=== PATIENT | male | born 1960 | race Caucasian/White ===

== ENCOUNTER 2018-10-26 12:00 | Inpatient (IN) | payer BC ==
[2018-10-26] MEDS ORDERED: ASPIRIN 81 MG PO STA (12:31)
--- NOTE | 2018-10-26 12:34 | ED ---
General Adult HPI - General Chief complaint: Neuro Symptoms/Deficit Stated complaint: numbness, lip and rt arm/fingers Time Seen by Provider: 10/26/18 12:10 Source: patient Mode of arrival: ambulatory Limitations: no limitations - History of Present Illness Initial comments: Dictation was produced using [employer] dictation software. please excuse any grammatical, word or spelling errors. Chief Complaint: 58-year-old male with no reported past medical history presents with right facial numbness and right hand numbness for 3 days. History of Present Illness: Patient is a 58-year-old male who presents today with right facial and right hand numbness that has been ongoing for approximately 3 days. Patient states the symptoms have been progressively worse in over the last 72 hours. Patient has a history of stroke. He noticed today that his symptoms getting worse decided come to the emergency department. He explains that his symptoms are localized to his right perioral area and right palmar fingers. Denies any other neuro deficits. Denies any weakness. The ROS documented in this emergency department record has been reviewed and confirmed by me. Those systems with pertinent positive or negative responses dey ve been documented in the HPI. All other systems are other negative and/or noncontributory. PHYSICAL EXAM: General Impression: Alert and oriented x3, not in acute distress HEENT: Normocephalic atraumatic, extra-ocular movements intact, pupils equal and reactive to light bilaterally, mucous membranes moist. Cardiovascular: Heart regular rate and rhythm, S1&S2 audible, no murmurs, rubs or gallops Chest: Lungs clear to auscultation bilaterally, no rhonchi, no wheeze, no rales Abdomen: Bowel sounds present, abdomen soft, non-tender, non-distended, no organomegaly Musculoskeletal: Pulses present and equal in all extremities, no peripheral edema Motor: no focal deficits noted Neurological: CN II-XII grossly intact, no focal motor deficits noted. Decreased sensation to light touch to the hand and right perioral area Skin: Intact with no visualized rashes Psych: Normal affect and mood ED course: 58-year-old male with clinical presentation concerning for cerebrovascular accident. As upon arrival are within acceptable limits. Laboratory evaluation obtained. CBC, coag panel, metabolic panel is unremarkable. Cardiac enzymes negative. Brain CT shows no acute processes. Chest x-ray is nonacute. Patient reevaluated with stable symptoms. We will have patient admitted for cerebral vascular accident. Patient given aspirin. Neurology to be consulted. EKG interpretation: Ventricular rate 92, normal sinus rhythm, PA interval 142, QS 142, QTC 494. No PA prolongation, no QTC prolongation, no ST or T-wave changes noted. Overall, this EKG is unremarkable - Related Data Home Medications Medication Instructions Recorded Confirmed Aspirin EC [Ecotrin Low Dose] 81 mg PO DAILY 10/26/18 10/26/18 Multivitamins, Thera [Multivitamin 1 tab PO DAILY 10/26/18 10/26/18 (formulary)] [place]-3 Fatty Acids/Fish Oil [Fish 1 cap PO DAILY 10/26/18 10/26/18 Oil 1,000 mg Softgel] Allergies Allergy/AdvReac Type Severity Reaction Status Date / Time atorvastatin [From Lipitor] Allergy Itching Verified 10/26/18 12:37 diclofenac [From Cataflam] Allergy Itching Verified 10/26/18 12:37 Sulfa (Sulfonamide Allergy Unknown Verified 10/26/18 12:37 Antibiotics) Review of Systems ROS Statement: Those systems with pertinent positive or pertinent negative responses have been documented in the HPI. ROS Other: All systems not noted in ROS Statement are negative. Past Medical History Past Medical History: No Reported History History of Any Multi-Drug Resistant Organisms: None Reported Past Surgical History: Hernia Repair, Orthopedic Surgery Additional Past Surgical History / Comment(s): (L) (R) rotator cuff surgery Past Psychological History: No Psychological Hx Reported Smoking Status: Former smoker Past Alcohol Use History: Daily Past Drug Use History: None Reported General Exam Limitations: no limitations Course Vital Signs 10/26/18 10/26/18 12:03 13:25 Temperature 98.9 F Pulse Rate 88 85 Respiratory 16 18 Rate Blood Pressure 199/115 195/139 O2 Sat by Pulse 97 96 Oximetry Medical Decision Making - Lab Data Result diagrams: 10/26/18 12:40 10/26/18 12:40 Lab Results 10/26/18 10/26/18 10/26/18 Range/Units 12:31 12:40 12:40 WBC 7.5 (3.8-10.6) k/uL RBC 4.90 (4.30-5.90) m/uL Hgb 15.0 (13.0-17.5) gm/dL Hct 44.3 (39.0-53.0) % MCV 90.4 (80.0-100.0) fL MCH 30.5 (25.0-35.0) pg MCHC 33.8 (31.0-37.0) g/dL RDW 13.2 (11.5-15.5) % Plt Count 231 (150-450) k/uL Neutrophils % 66 % Lymphocytes % 26 % Monocytes % 5 % Eosinophils % 1 % Basophils % 0 % Neutrophils # 5.0 (1.3-7.7) k/uL Lymphocytes # 2.0 (1.0-4.8) k/uL Monocytes # 0.4 (0-1.0) k/uL Eosinophils # 0.1 (0-0.7) k/uL Basophils # 0.0 (0-0.2) k/uL PT (9.0-12.0) sec INR (<1.2) APTT (22.0-30.0) sec Sodium 141 (137-145) mmol/L Potassium 4.8 (3.5-5.1) mmol/L Chloride 111 H (98-107) mmol/L Carbon Dioxide 23 (22-30) mmol/L Anion Gap 7 mmol/L BUN 15 (9-20) mg/dL Creatinine 0.89 (0.66-1.25) mg/dL Est GFR (CKD-EPI)AfAm >90 (>60 ml/min/1.73 sqM) Est GFR (CKD-EPI)NonAf >90 (>60 ml/min/1.73 sqM) Glucose 101 H (74-99) mg/dL POC Glucose (mg/dL) 85 (75-99) mg/dL POC Glu Track Fitter ID Wade Ha Calcium 9.7 (8.4-10.2) mg/dL Total Bilirubin 0.4 (0.2-1.3) mg/dL AST 46 (17-59) U/L ALT 70 (21-72) U/L Alkaline Phosphatase 80 (38-126) U/L Troponin I (0.000-0.034) ng/mL Total Protein 7.3 (6.3-8.2) g/dL Albumin 4.4 (3.5-5.0) g/dL 10/26/18 10/26/18 Range/Units 12:40 12:40 WBC (3.8-10.6) k/uL RBC (4.30-5.90) m/uL Hgb (13.0-17.5) gm/dL Hct (39.0-53.0) % MCV (80.0-100.0) fL MCH (25.0-35.0) pg MCHC (31.0-37.0) g/dL RDW (11.5-15.5) % Plt Count (150-450) k/uL Neutrophils % % Lymphocytes % % Monocytes % % Eosinophils % % Basophils % % Neutrophils # (1.3-7.7) k/uL Lymphocytes # (1.0-4.8) k/uL Monocytes # (0-1.0) k/uL Eosinophils # (0-0.7) k/uL Basophils # (0-0.2) k/uL PT 10.1 (9.0-12.0) sec INR 0.9 (<1.2) APTT 23.7 (22.0-30.0) sec Sodium (137-145) mmol/L Potassium (3.5-5.1) mmol/L Chloride (98-107) mmol/L Carbon Dioxide (22-30) mmol/L Anion Gap mmol/L BUN (9-20) mg/dL Creatinine (0.66-1.25) mg/dL Est GFR (CKD-EPI)AfAm (>60 ml/min/1.73 sqM) Est GFR (CKD-EPI)NonAf (>60 ml/min/1.73 sqM) Glucose (74-99) mg/dL POC Glucose (mg/dL) (75-99) mg/dL POC Glu Track Fitter ID Calcium (8.4-10.2) mg/dL Total Bilirubin (0.2-1.3) mg/dL AST (17-59) U/L ALT (21-72) U/L Alkaline Phosphatase (38-126) U/L Troponin I 0.029 (0.000-0.034) ng/mL Total Protein (6.3-8.2) g/dL Albumin (3.5-5.0) g/dL Disposition Clinical Impression: Cerebrovascular accident Disposition: ADMITTED IP TO THIS HOSP Condition: Fair Referrals: Renetta Pantoja MD [Primary Care Provider] - 1-2 days Decision Time: 13:48
[2018-10-26 12:35] LABS: Glucose,Whole Blood 85 mg/dL (75-99)
[2018-10-26 12:49] LABS: HCT 44.3 % (39.0-53.0); MCH 30.5 pg (25.0-35.0); MCHC 33.8 g/dL (31.0-37.0); MCV 90.4 fL (80.0-100.0); WBC 7.5 k/uL (3.8-10.6)
[2018-10-26 12:50] LABS: Basophils % (A) 0 %; Eosinophils # (A) 0.1 k/uL (0-0.7); Eosinophils % (A) 1 %; Lymphocytes % (A) 26 %; Mean Platelet Volume 7.4; Monocytes # (A) 0.4 k/uL (0-1.0); Monocytes % (A) 5 %; Neutrophils % (A) 66 %; Platelet Count 231 k/uL (150-450); RDW 13.2 % (11.5-15.5)
[2018-10-26 12:56] LABS: ALT 70 U/L (21-72); AST 46 U/L (17-59); African American GFR (CKD) >90 (>60 ml/min/1.73 sqM); Albumin 4.4 g/dL (3.5-5.0); Alkaline Phosphatase 80 U/L (38-126); Anion Gap 7 mmol/L; Blood Urea Nitrogen 15 mg/dL (9-20); Calcium 9.7 mg/dL (8.4-10.2); Carbon Dioxide 23 mmol/L (22-30); Chloride 111 mmol/L (98-107); Glucose 101 mg/dL (74-99); INR 0.9 (<1.2); Partial Thromboplastin Time 23.7 sec (22.0-30.0); Potassium 4.8 mmol/L (3.5-5.1); Prothrombin Time 10.1 sec (9.0-12.0); Sodium 141 mmol/L (137-145); Total Bilirubin 0.4 mg/dL (0.2-1.3); Total Protein 7.3 g/dL (6.3-8.2)
--- NOTE | 2018-10-26 13:05 | CT ---
EXAMINATION TYPE: CT brain wo con DATE OF EXAM: 10/26/2018 COMPARISON: NONE HISTORY: Right facial and arm weakness CT DLP: 1062.4 mGycm Automated exposure control for dose reduction was used. FINDINGS: There are mild, generalized changes of sulcal prominence and ventriculomegaly compatible with mild at rophy. There is diffuse periventricular white matter lucency, compatible with chronic white matter ischemic change. There is no acute focal lesion, mass effect or midline shift. I do not see evidence of intrac ranial blood. There is mucosal thickening involving both maxillary sinuses. The mastoids are clear. T he bony calvarium is intact. IMPRESSION: 1. NO ACUTE INTRACRANIAL ABNORMALITY. 2. MILD DEGENERATIVE CHANGE. 3. MILD MAXILLARY SINUS DISEASE.
--- NOTE | 2018-10-26 13:05 | XR ---
EXAMINATION TYPE: XR chest 2V DATE OF EXAM: 10/26/2018 HISTORY: altered mental status. REFERENCE: NONE. FINDINGS: Lung volumes are prominent. The lungs are clear. Pleural space are clear. The heart is not enlarged. IMPRESSION: CORRELATE FOR COPD.
[2018-10-26 16:15] VITALS: BMI 32.8
[2018-10-26] MEDS: amLODIPine 10 MG TAB PO SCH (17:37)
[2018-10-26] MEDS: FAMOTIDINE 20 MG TAB PO SCH (17:38)
[2018-10-26] MEDS: HEPARIN SODIUM,PORCINE 5,000 UNIT/ML 1 ML VIAL SQ SCH (17:38)
[2018-10-26] MEDS: DOCUSATE 100 MG CAP PO SCH (17:39)
--- NOTE | 2018-10-26 20:06 | P.CNNES ---
History of Present Illness Consult date: 10/26/18 Reason for Consult: Stroke TIA History of Present Illness: Patient is a 58-year-old male, who has history of hypertension, X tobacco use, states that about 3 days ago he started noticing numbness of the upper and lower lip, only on the right side. Sometimes he would have numbness on the right side of his teeth, almost as if he has novocaine shot. Sometime it would extend to the right cheek region. Around the same time he also noticed numbness of the right hand. Patient states that he does have history of possible carpal tunnel syndrome, but symptoms in the right hand would come and go. This time it would not go away. Therefore he got concerned and decided to come to the ER. His symptoms have been present for 3 days therefore he was not a candidate for TPA. Patient underwent computed tomography scan of the head, which revealed no acute process. Some small vessel disease was seen. Patient denies any slurred speech, facial droop, headache, head trauma or any symptoms of weakness of the extremities. Patient blood pressure was 199/1:15, pulse rate 88 temperature 98.9. His blood pressure at this time is also elevated to 112/122. Patient's blood test shows normal CBC, PT/PTT, Chem-7, liver panel and troponin. EKG showed normal sinus rhythm, possible left atrial enlargement. Chest x-ray showed evidence of COPD. Patient has hypertension, denies diabetes. He does not know about his cholesterol status. Patient has smoked 1 pack per day for 38 years, quit in 2014. Patient states that he does drink about a 6 pack of beer a day. He has been doing it for quite some time. Patient does take low-dose aspirin every day. Review of Systems As per HPI. Patient denies any shortness of breath, cough, although he does have COPD. Denies any chest pain, abdominal pain, nausea vomiting diarrhea. Denies any neck pain and back pain, any recent injury or trauma. Past Medical History Past Medical History: No Reported History History of Any Multi-Drug Resistant Organisms: None Reported Past Surgical History: Hernia Repair, Orthopedic Surgery Additional Past Surgical History / Comment(s): (L) (R) rotator cuff surgery Past Psychological History: No Psychological Hx Reported Smoking Status: Former smoker Past Alcohol Use History: Daily Past Drug Use History: None Reported Medications and Allergies Home Medications Medication Instructions Recorded Confirmed Type Aspirin EC [Ecotrin Low Dose] 81 mg PO DAILY 10/26/18 10/26/18 History Multivitamins, Thera [Multivitamin 1 tab PO DAILY 10/26/18 10/26/18 History (formulary)] [place]-3 Fatty Acids/Fish Oil [Fish 1 cap PO DAILY 10/26/18 10/26/18 History Oil 1,000 mg Softgel] Allergies Allergy/AdvReac Type Severity Reaction Status Date / Time atorvastatin [From Lipitor] Allergy Itching Verified 10/26/18 12:37 diclofenac [From Cataflam] Allergy Itching Verified 10/26/18 12:37 Sulfa (Sulfonamide Allergy Unknown Verified 10/26/18 12:37 Antibiotics) Physical Examination - Vital Signs Vital Signs: Vital Signs Temp Pulse Pulse Resp BP BP Pulse Ox 10/26/18 18:26 212/122 10/26/18 16:35 88 17 221/133 97 10/26/18 14:52 80 20 185/124 97 10/26/18 14:18 82 18 179/122 96 10/26/18 13:25 85 18 195/139 96 10/26/18 12:03 98.9 F 88 16 199/115 97 Intake and Output 10/26/18 10/26/18 10/26/18 06:59 14:59 22:59 Intake Total 240 Balance 240 Intake: Oral 240 Other: Weight 106.594 kg 109.1 kg On examination patient is a middle aged male, very pleasant in no acute distress. He is alert and awake fully oriented to time place and person. Speech and language functions are normal. Patient may have very mild dysart hria. No aphasia. Attention and concentration fund of knowledge is adequate. There is no obvious bruit, and S1 and S2 audible. On cranial nerve examination pupils are round and reactive to light, visual ryan are full, extraocular muscles are intact. Face is symmetric and tongue protrudes to the midline. Palatal elevation and sensation normal. On muscle strength testing there is no drift and the strength is normal in arms and legs distally and proximally. There is no ataxia for [id number] testing. Tone and bulk of muscles normal. Reflexes are slightly hypoactive, but symmetric and plantars downgoing. Sensory to touch and temperature is equal bilaterally in the face arm and leg region Results - Laboratory Findings CBC and BMP: 10/26/18 12:40 10/26/18 12:40 Abnormal Lab Findings: Abnormal Labs 10/26/18 12:40 Chloride 111 H Glucose 101 H Assessment and Plan Assessment: * Probable acute CVA, manifesting with numbness of the right perioral region, and the right hand. Possible thalamic lacunar infarct. Peripheral process less likely. * Uncontrolled blood pressure * Eatd-dl-ocbzuwan alcoholism * Obesity Plan: * Agree with starting aspirin 325 mg daily. (Patient was on aspirin 81 mg at home.) * We will check MRI of the brain and MRA of the head. * Carotid Doppler to rule out carotid stenosis. * 2-D echo with bubble study to rule out PFO. * We will check fasting a.m. lipid panel, hemoglobin A1c. * Very cautiously control blood pressure if > 220/120, however would not treat if it is < 180 systolic. * Abstinence from alcohol. * We will follow.
[2018-10-26] MEDS ORDERED: LABETALOL 200 MG TAB PO STA (20:33)
--- NOTE | 2018-10-26 21:12 | US ---
EXAMINATION TYPE: US carotid duplex BILAT DATE OF EXAM: 10/26/2018 COMPARISON: None CLINICAL HISTORY: 58-year-old male CVA. Patient stated has intermittent right arm and facial numbness x 3 days TECHNIQUE: Carotid duplex ultrasound examination. Indirect Doppler criteria is utilized. FINDINGS: EXAM MEASUREMENTS: RIGHT: Peak Systolic Velocity (PSV) cm/sec ----- Right CCA: 40.9 ----- Right ICA: 62.2 ----- Right ECA: 79.7 ICA/CCA ratio: 1.5 RIGHT: End Diastole cm/sec ----- Right CCA: 12.1 ----- Right ICA: 21.5 ----- Right ECA: 0.0 LEFT: Peak Systolic Velocity (PSV) cm/sec ----- Left CCA: 66.7 ----- Left ICA: 53.4 ----- Left ECA: 97.8 ICA/CCA ratio: 0.8 LEFT: End Diastole cm/sec ----- Left CCA: 10.6 ----- Left ICA: 15.7 ----- Left ECA: 8.5 VERTEBRALS (direction of flow): Right Vertebral: Antegrade Left Vertebral: Antegrade Rhythm: Normal Automatic Presser notes: Mild, mixed wall plaque is noted in bilateral carotid systems, but PSV is wnl bila terally. Moderate changes are present on the right and mild on the left. IMPRESSION: No hemodynamically significant stenosis appreciated in either internal carotid artery. Criteria for Assigning % of Stenosis / Diameter reduction (Estimation based on the indirect measurements of the internal carotid artery velocities (ICA PSV). 1. Normal (no stenosis)=ICA PSV < 125 cm/s: ratio < 2.0: ICA EDV<40 cm/s. 2. Less than 50% stenosis=ICA PSV < 125 cm/s: ratio < 2.0: ICA EDV<40 cm/s. 3. 50 to 69% stenosis=ICA PSV of 125 to 230 cm/s: ration 2.0 ? 4.0: ICA EDV 40-100 cm/s. 4. Greater than 70% stenosis to near occlusion= ICA PSV > 230 cm/s: ratio > 4.0: ICA EDV > 100 cm/s. 5. Near occlusion= ICA PSV velocities may be low or undetectable: variable ratio and ICA EDV. 6. Total occlusion=unable to detect flow.
[2018-10-27] MEDS: DOCUSATE 100 MG CAP PO SCH ×4 (00:01→20:51)
[2018-10-27] MEDS: HEPARIN SODIUM,PORCINE 5,000 UNIT/ML 1 ML VIAL SQ SCH ×4 (00:07→23:14)
--- NOTE | 2018-10-27 00:34 | P.HPIM ---
History of Present Illness H&P Date: 10/26/18 Chief Complaint: Right arm numbness Patient is a 58-year-old male with a known history of hypertension and is currently not taking any medications at home, previous history of smoking and daily alcohol use presents to ER with complaints of right arm numbness and perioral numbness initially started about 3 days back. Patient has been having worsening symptoms which made him to come to ER for evaluation. Patient is out of time frame for TPA. Patient denied any complaints of difficulty in speech, blurred vision or focal weakness. Denied any complaints of chest pain or shortness of breath. No complains of palpitations. No headache or dizziness or lightheadedness. No nausea vomiting or diarrhea. Denied any recent illnesses. Patient says that she does have some leg swelling otherwise denied any complaints. Blood pressures uncontrolled on admission with SBP greater than 220 mmHg. EKG showed normal sinus rhythm. Left atrial enlargement. Chest x-ray showed correlate for COPD CT head showed no acute process. Review of Systems Constitutional: Patient denies any fever or chills . No generalized weakness or weight loss. Abdomen: Patient denied nausea vomiting and diarrhea and abdominal pain. Cardiovascular: Patient denies any chest pain or short of breath no palpitations. Respiratory: patient denied any cough is from production. No shortness of breath Neurologic: Patient does have right arm numbness. No headache or dizziness. Musculoskeletal: Patient denies any complaints of joint swelling or deformity. Skin: Negative Psychiatric: Negative Endocrine: No heat or cold intolerance. No recent weight gain. Genitourinary: No dysuria or hematuria. All other 14 point ROS negative except the above Past Medical History Past Medical History: No Reported History History of Any Multi-Drug Resistant Organisms: None Reported Past Surgical History: Hernia Repair, Orthopedic Surgery Additional Past Surgical History / Comment(s): (L) (R) rotator cuff surgery Past Psychological History: No Psychological Hx Reported Smoking Status: Former smoker Past Alcohol Use History: Daily Past Drug Use History: None Reported Medications and Allergies Home Medications Medication Instructions Recorded Confirmed Type Aspirin EC [Ecotrin Low Dose] 81 mg PO DAILY 10/26/18 10/26/18 History Multivitamins, Thera [Multivitamin 1 tab PO DAILY 10/26/18 10/26/18 History (formulary)] [place]-3 Fatty Acids/Fish Oil [Fish 1 cap PO DAILY 10/26/18 10/26/18 History Oil 1,000 mg Softgel] Allergies Allergy/AdvReac Type Severity Reaction Status Date / Time atorvastatin [From Lipitor] Allergy Itching Verified 10/26/18 12:37 diclofenac [From Cataflam] Allergy Itching Verified 10/26/18 12:37 Sulfa (Sulfonamide Allergy Unknown Verified 10/26/18 12:37 Antibiotics) Physical Exam Vitals: Vital Signs Temp Pulse Resp BP Pulse Ox 10/26/18 14:52 80 20 185/124 97 10/26/18 14:18 82 18 179/122 96 10/26/18 13:25 85 18 195/139 96 10/26/18 12:03 98.9 F 88 16 199/115 97 Intake and Output 10/26/18 10/26/18 10/26/18 06:59 14:59 22:59 Other: Weight 106.594 kg 109.1 kg PHYSICAL EXAMINATION: Patient is lying in the bed comfortably, no acute distress, awake alert and oriented.. HEENT: Normocephalic. Neck is supple. Pupils reactive. Nostrils clear. Oral cavity is moist. Ears reveal no drainage. Neck reveals no JVD, carotid bruits, or thyromegaly. CHEST EXAMINATION: Trachea is central. Symmetrical expansion. Lung ryan clear to auscultation and percussion. CARDIAC: Normal S1, S2 with no gallops. No murmurs ABDOMEN: Soft. Bowel sounds normal. No organomegaly. No abdominal bruits. Extremities: reveal no edema. No clubbing or cyanosis Neurologically awake, alert, oriented x3 with well-coordinated movements. Motor 5 x 5 in all limbs. No focal deficits noted Skin: No rash or skin lesions. Psychiatric: Coperative. Nonsuicidal Musculoskeletal: No joint swelling or deformity. Normal range of motion. Results CBC & Chem 7: 10/26/18 12:40 10/26/18 12:40 Labs: Abnormal Lab Results - Last 24 Hours (Table) 10/26/18 Range/Units 12:40 Chloride 111 H (98-107) mmol/L Glucose 101 H (74-99) mg/dL Thrombosis Risk Factor Assmnt - DVT/VTE Prophylaxis DVT/VTE Prophylaxis: Pharmacologic Prophylaxis ordered - Choose All That Apply Any of the Below Risk Factors Present?: Yes Each Factor Represents 1 point: Age 41-60 years Other Risk Factors: No Thrombosis Risk Factor Assessment Total Risk Factor Score: 1 Thrombosis Risk Factor Assessment Level: Low Risk Assessment and Plan Assessment: Right arm numbness and perioral numbness. Possible acute CVA Hypertensive urgency on admission. Noncompliance with medications Nicotine addiction Daily alcohol use DVT prophylaxis Plan: Patient will be continued on telemetry monitoring. Started on aspirin 325 mg daily. We will follow up liver profile. 2-D echocardiogram was ordered. Neurology will be consulted for further evaluation. Patient was started on Norvasc by mouth at this time and continue permissive hypertension due to acute CVA. Started on multivitamins and thiamine. Monitor for any alcohol withdrawal symptoms. Follow up closely and further recommendations based on the clinical course. Time with Patient: Greater than 30
[2018-10-27 00:36] LABS: Cholesterol 235 mg/dL (<200); HDL Cholesterol 57 mg/dL (40-60); LDL Cholesterol,Calculated 141 mg/dL (0-99); Triglycerides 184 mg/dL (<150)
[2018-10-27] MEDS: ASPIRIN 325 MG TAB PO SCH (08:31)
[2018-10-27] MEDS: FAMOTIDINE 20 MG TAB PO SCH ×2 (08:31→20:51)
[2018-10-27] MEDS: amLODIPine 10 MG TAB PO SCH (08:31)
[2018-10-27] MEDS: THIAMINE 100 MG TAB PO SCH (08:31)
[2018-10-27] MEDS: MULTIVITAMINS, THERA 1 EACH TAB PO SCH (08:31)
[2018-10-27] MEDS ORDERED: NON-FORMULARY DRUG (Omega-3 Fatty Acids/Fish Oil [Fish Oil 1,000 Mg Softgel] 1 CAP) PO SCH (09:00)
--- NOTE | 2018-10-27 22:42 | P.PN ---
Subjective Progress Note Date: 10/27/18 Patient states his numbness of the upper and lower lips lips on the right side has improved. Still with numbness of the right hand. Denies any new neurological symptoms. Objective - Vital Signs Vital signs: Vital Signs Temp 98.1 F 10/27/18 16:30 Pulse 77 10/27/18 16:30 Resp 18 10/27/18 16:30 BP 185/92 10/27/18 16:30 Pulse Ox 97 10/27/18 16:30 Intake & Output 10/27/18 10/27/18 10/28/18 06:59 18:59 06:59 Intake Total 360 1080 Balance 360 1080 Weight 109.4 kg Intake: Oral 360 1080 Other: # Voids 2 - Exam On examination, patient's mental status, speech and language functions are normal. Face is symmetric. Visual ryan are full. Extraocular muscles are intact. On muscle strength testing there is no pronator drift and the strength is normal in arms and legs, except deltoid switches mildly weak from previous rotator cuff tears. Sensations equal. No ataxia. Gait normal. - Labs CBC & Chem 7: 10/26/18 12:40 10/26/18 12:40 Labs: Abnormal Lab Results - Last 24 Hours (Table) 10/26/18 Range/Units 12:40 Triglycerides 184 H (<150) mg/dL Cholesterol 235 H (<200) mg/dL LDL Cholesterol, Calc 141 H (0-99) mg/dL Assessment and Plan Assessment: * Probable acute CVA, manifesting with numbness of the right perioral region, and the right hand. Possible thalamic lacunar infarct. Peripheral process less likely. * Uncontrolled blood pressure * Oolm-jc-orwfizeb alcoholism * Obesity Plan: * Continue aspirin 325 mg daily. (Patient was on aspirin 81 mg at home.) * Await MRI of the brain and MRA of the head. * Carotid Doppler showed no significant stenosis. * 2-D echo with bubble study to rule out PFO, still pending. * Fasting a.m. lipid panel showed cholesterol 235, LDL 141, triglycerides 184. Discussed with patient about starting statins. He states that he has previous ly tried numerous statins and had some reaction to it. We will defer regarding starting statins to his primary physician. * Hemoglobin A1c still pending. * May optimize blood pressure control to less than 160 systolic. * Abstinence from alcohol. * Patient to follow up by Dr. Michael Robertson for neurological care from now onwards.
--- NOTE | 2018-10-28 | P.PN ---
Subjective Progress Note Date: 10/27/18 Principal diagnosis: Right arm numbness possible acute CVA Patient is a 58-year-old male with a known history of hypertension and is currently not taking any medications at home, previous history of smoking and daily alcohol use presents to ER with complaints of right arm numbness and perioral numbness initially started about 3 days back. Patient has been having worsening symptoms which made him to come to ER for evaluation. Patient is out of time frame for TPA. Patient denied any complaints of difficulty in speech, blurred vision or focal weakness. Denied any complaints of chest pain or shortness of breath. No complains of palpitations. No headache or dizziness or lightheadedness. No nausea vomiting or diarrhea. Denied any recent illnesses. Patient says that she does have some leg swelling otherwise denied any complaints. Blood pressures uncontrolled on admission with SBP greater than 220 mmHg. EKG showed normal sinus rhythm. Left atrial enlargement. Chest x-ray showed correlate for COPD CT head showed no acute process. 10/27/2018 Patient is currently sitting on the chair comfortably. No complains of chest pain or shortness of breath. Right hand numbness is almost resolved. Tolerating oral diet. Blood pressure is still elevated. Continue with Norvasc and will add hydrochlorothiazide/lisinopril. MRI of the brain and 2-D echocardiogram is pending. LDL is 141. Patient is ALLERGIC to atorvastatin. Continue with aspirin at this time. Neurology is on board. Current medications reviewed. Objective - Vital Signs Vital signs: Vital Signs Temp 97.9 F 10/27/18 20:00 Pulse 89 10/27/18 20:00 Resp 18 10/27/18 20:00 BP 171/92 10/27/18 20:00 Pulse Ox 96 10/27/18 20:00 Intake & Output 10/27/18 10/27/18 10/28/18 06:59 18:59 06:59 Intake Total 360 1080 Balance 360 1080 Weight 109.4 kg Intake: Oral 360 1080 Other: Voiding Method Toilet # Voids 2 1 - Exam PHYSICAL EXAMINATION: Patient is lying in the bed comfortably, no acute distress, awake alert and oriented.. HEENT: Normocephalic. Neck is supple. Pupils reactive. Nostrils clear. Oral cavity is moist. Ears reveal no drainage. Neck reveals no JVD, carotid bruits, or thyromegaly. CHEST EXAMINATION: Trachea is central. Symmetrical expansion. Lung ryan clear to auscultation and percussion. CARDIAC: Normal S1, S2 with no gallops. No murmurs ABDOMEN: Soft. Bowel sounds normal. No organomegaly. No abdominal bruits. Extremities: reveal no edema. No clubbing or cyanosis Neurologically awake, alert, oriented x3 with well-coordinated movements. No focal deficits noted Skin: No rash or skin lesions. Psychiatric: Coperative. Nonsuicidal Musculoskeletal: No joint swelling or deformity. Normal range of motion. - Labs CBC & Chem 7: 10/26/18 12:40 10/26/18 12:40 Labs: Abnormal Lab Results - Last 24 Hours (Table) 10/26/18 Range/Units 12:40 Triglycerides 184 H (<150) mg/dL Cholesterol 235 H (<200) mg/dL LDL Cholesterol, Calc 141 H (0-99) mg/dL Assessment and Plan Assessment: Right arm numbness and perioral numbness. Possible acute CVA with thalamic infarct Hypertensive urgency on admission. Uncontrolled hypertension Hyperlipidemia with LDL 141 Noncompliance with medications Nicotine addiction Daily alcohol use DVT prophylaxis Plan: Patient will be continued on telemetry monitoring. Started on aspirin 325 mg daily. Patient is ALLERGIC to atorvastatin.. 2-D echocardiogram was ordered. Neurology is following. Patient was started on Norvasc by mouth at this time and continue permissive hypertension due to acute CVA. Started on multivitamins and thiamine. Monitor for any alcohol withdrawal symptoms. Follow up closely and further recommendations based on the clinical course. Time with Patient: Greater than 30
[2018-10-28 00:16] LABS: Magnesium 2.2 mg/dL (1.6-2.3); Potassium 3.9 mmol/L (3.5-5.1)
[2018-10-28] MEDS: amLODIPine 10 MG TAB PO SCH (05:45)
[2018-10-28 06:20] LABS: African American GFR (CKD) >90 (>60 ml/min/1.73 sqM); Anion Gap 8 mmol/L; Blood Urea Nitrogen 15 mg/dL (9-20); Calcium 9.5 mg/dL (8.4-10.2); Carbon Dioxide 24 mmol/L (22-30); Chloride 105 mmol/L (98-107); Glucose 154 mg/dL (74-99); Potassium 4.2 mmol/L (3.5-5.1); Sodium 137 mmol/L (137-145)
[2018-10-28 08:55] LABS: Hemoglobin A1C 6.1 % (4.0-6.0)
[2018-10-28] MEDS: THIAMINE 100 MG TAB PO SCH (08:55)
[2018-10-28] MEDS: FAMOTIDINE 20 MG TAB PO SCH ×2 (08:55→19:48)
[2018-10-28] MEDS: MULTIVITAMINS, THERA 1 EACH TAB PO SCH (08:55)
[2018-10-28] MEDS: DOCUSATE 100 MG CAP PO SCH ×3 (08:55→22:54)
[2018-10-28] MEDS: ASPIRIN 325 MG TAB PO SCH (08:55)
[2018-10-28] MEDS: HEPARIN SODIUM,PORCINE 5,000 UNIT/ML 1 ML VIAL SQ SCH ×3 (08:55→22:54)
[2018-10-28] MEDS: LISINOPRIL-HCTZ 10-12.5 MG 1 EACH TAB PO SCH (08:55)
--- NOTE | 2018-10-28 10:34 | MR ---
MR brain without contrast HISTORY: Cerebral vascular accident Multiplanar multisequence imaging through the brain Comparison CT brain 10/26/2018 There is no restricted diffusion. There is scattered small foci of restricted diffusion involving the right parietal lobe and left parietal lobe, corresponding hyperintensity noted on inversion recovery T2-weighted sequences, there are extensive confluent and scattered hyperintensities on inversion rec overy and T2-weighted sequences in the periventricular, pericallosal, sub and juxtacortical white mat ter. There is no hemorrhage or hydrocephalus. There are normal vascular flow voids present. Mild infl ammatory change present within the maxillary sinuses, ethmoid air cells. Orbits show symmetric appear ance. Cortical atrophy is likely age-related. Possible encephalomalacia inferior right cerebellar hem isphere. Cerebellopontine angles, corpus callosum, pituitary, cervical medullary junction are unremar kable. Orbits show symmetric appearance. IMPRESSION: Findings compatible with patient's history of cerebrovascular accident, consider embolic phenomenon bilaterally. Probable chronic small vessel ischemia and age-related atrophy. Sinus disease .
--- NOTE | 2018-10-28 10:40 | MR ---
EXAMINATION TYPE: MR angio head wo con DATE OF EXAM: 10/28/2018 COMPARISON: MR brain same date HISTORY: CVA TECHNIQUE: Time of flight images focusing on the [place] were performed without contrast. Th ree-dimensional reconstructions performed in an alternate workstation FINDINGS: Internal carotid arteries, vertebrobasilar system are patent, the left vertebral artery is dominant. There is no evident embolus, dissection, or aneurysm. Persistent origin of the right posterior cerebral artery is noted. IMPRESSION: No abnormality evident to account for patient's symptoms.
--- NOTE | 2018-10-28 13:34 | ECHOF ---
Referral Reason:Acute CVA MEASUREMENTS -------- HEIGHT: 180.3 cm WEIGHT: 109.3 kg BP: IVSd: 1.9 cm (0.6 - 1.1) LVIDd: 3.2 cm (3.9 - 5.3) LVPWd: 1.9 cm (0.6 - 1.1) IVSs: 2.3 cm LVIDs: 2.1 cm LVPWs: 2.6 cm LAESV Index (A-L): 38.06 ml/m Ao Diam: 3.8 cm (2.0 - 3.7) AV Cusp: 1.5 cm (1.5 - 2.6) LA Diam: 3.4 cm (2.7 - 3.8) MV EXCURSION: 15.618 mm (> 18.000) MV EF SLOPE: 61 mm/s (70 - 150) EPSS: 0.8 cm MV E Spenser: 0.92 m/s MV DecT: 213 ms MV A Spenser: 1.48 m/s MV E/A Ratio: 0.62 AR PHT: 259 ms RAP: 5.00 mmHg RVSP: 15.73 mmHg FINDINGS -------- Sinus rhythm. This was a technically adequate study. The left ventricular size is normal. There is severe concentric left ventricular hypertrophy. Ove rall left ventricular systolic function is normal with, an EF between 55 - 60 %. The right ventricle is normal in size. LA is moderately dilated 34-39 ml/m2 The right atrial size is normal. Interatrial and interventricular septum intact. There is mild aortic valve sclerosis. There is mild aortic regurgitation. Moderate mitral annular calcification present. Mild mitral regurgitation is present. Mild tricuspid regurgitation present. There is no evidence of pulmonary hypertension. The right v entricular systolic pressure, as measured by Doppler, is 15.73mmHg. There is no pulmonic regurgitation present. The aortic root size is normal. Normal inferior vena cava with normal inspiratory collapse consistent with estimated right atrial pre ssure of 5 mmHg. Echo free space may represent effusion or a pericardial fat pad. CONCLUSIONS -------- 1. Sinus rhythm. 2. This was a technically adequate study. 3. The left ventricular size is normal. 4. There is severe concentric left ventricular hypertrophy. 5. Overall left ventricular systolic function is normal with, an EF between 55 - 60 %. 6. LA is moderately dilated 34-39 ml/m2 7. There is mild aortic valve sclerosis. 8. There is mild aortic regurgitation. 9. Moderate mitral annular calcification present. 10. Mild mitral regurgitation is present. 11. Mild tricuspid regurgitation present. 12. There is no evidence of pulmonary hypertension. 13. There is no pulmonic regurgitation present. 14. The aortic root size is normal. 15. Normal inferior vena cava with normal inspiratory collapse consistent with estimated right atrial pressure of 5 mmHg. 16. Echo free space may represent effusion or a pericardial fat pad. LICENSED PHYSICAL THERAPIST: Jolene Alvarez RDCS
--- NOTE | 2018-10-28 23:55 | PN ---
PROGRESS NOTE DATE OF SERVICE: 10/28/2018. REFERRING DOCTOR: Dr. eWbb. The patient is a 58-year-old male who presented to [facility] on 10/26/2018 for evaluation of numbness involving the right hand and right-side of his lips. The patient was taking aspirin 81 mg daily at the time of this event. He denied numbness involving the right lower extremity, left-sided symptoms, and had no associated right facial droop or right upper extremity weakness. At this time, the patient states he is doing well, although continues to have numbness involving the fingertips of the right hand as well as the right-sided lips. The patient's is at the bedside. The patient reports a history of LIPITOR ALLERGY and states that he was tried on several other statin medications but cannot recollect if there were any side effects with those. He was not taking a statin upon presentation. The patient states he has not followed up with his primary care physician in 2-3 years. He reports drinking about 6-8 beers per day. CURRENT MEDICATIONS: 1. Norvasc. 2. Aspirin 325 mg daily. 3. Colace. 4. Pepcid. 5. Heparin subcutaneously. 6. Zestoretic. 7. Multivitamin. 8. Thiamine. PHYSICAL EXAMINATION: Upon my arrival in the patient's room, he was sitting up in a bedside chair. His was at the bedside. The patient was receptive to the examiner. Affect is normal. He is an accurate historian and appears of stated age. VITAL SIGNS: Blood pressure is 172/90 with a pulse of 88, respiratory rate 16, temperature 98.2. SKIN AND EXTREMITIES: Arthritic change noted on the hands. HEAD AND NECK: No signs of trauma. Neck is supple without meningeal signs. Arteries are nontender and without bruit. HEART: Regular rate and rhythm. HIGHER CORTICAL FUNCTION: MENTAL STATUS: The patient was alert, oriented to time, place and person. There is no aphasia or dysarthria. Cranial nerves II through XII are intact except for mild diminution to a pinprick involving the right-sided lips as compared to the left. MOTOR EXAMINATION: No pronator drift. Normal bulk and tone in all major muscle groups. Strength is 5/5 throughout. SENSORY: Patient reports mild diminution to pinprick involving the right-sided fingertips as compared to the left. The remainder of the upper/lower extremities were symmetric. REFLEXES: 1/4 in the upper extremities and patellae, 2/4 at the ankles. Moncada's is absent. COORDINATION: [id number], qqgj-[id number]-[id number] movements are intact. Rapid alternating movements are symmetric with finger tapping. DIAGNOSTIC TESTIN. The patient had an MRI of the brain completed without contrast on 10/28/2018 demonstrating tiny acute bilateral parietal infarcts in addition to moderate white matter ischemic change; no hydrocephalus. 2. Echocardiogram demonstrated severe concentric LVH with an ejection fraction of 55% to 60%. 3. MRA of the head from 10/28/2018 was read as negative. 4. Carotid ultrasound from 10/26 demonstrated no significant stenosis on either side. 5. Telemetry revealed an 18-beat run of VT per nursing staff last night. 6. Lab work demonstrates a cholesterol of 235 and LDL of 141, HDL of 57. Hemoglobin A1c 6.9. Sodium 137, potassium 4.2, BUN 15 with creatinine 0.73. IMPRESSION: 1. Tiny, bilateral parietal (MCA distribution) infarcts, likely cardioembolic in nature versus secondary to uncontrolled hypertension. Carotid ultrasound/MRA of the head was unrevealing. The patient's risk factors for stroke include hypertension, hyperlipidemia, daily alcohol use, male sex and age. The patient was taking aspirin 81 mg daily at the time of this event. 2. An 18-beat run of ventricular tachycardia on telemetry last night. 3. Severe concentric left ventricular hypertrophy on echocardiogram, likely secondary to uncontrolled hypertension. 4. Noncompliance with physician followups. The patient states he has not followed with a physician in 2-3 years. 5. LIPITOR ALLERGY per patient. RECOMMENDATIONS: 1. I discussed my impression with the patient and his . Case was also discussed with nursing staff. 2. Cardiology has been consulted regarding the run of ventricular tachycardia and need to pursue transesophageal echocardiogram. If the NAYELY is unrevealing, would consider loop recorder placement. 3. Will add Plavix to the patient's aspirin for now. 4. Would recommend intense statin therapy per primary service if the patient can tolerate. The patient states he has tried several statins in the past. 5. Risk factor modification. 6. Would strongly recommend the patient moderate alcohol consumption. 7. Will follow with you. MMODL / IJN: [id number] / [facility] MEDICAL CENTERDenzel
--- NOTE | 2018-10-29 00:57 | P.PN ---
Subjective Progress Note Date: 10/28/18 Principal diagnosis: Right arm numbness possible acute CVA Patient is a 58-year-old male with a known history of hypertension and is currently not taking any medications at home, previous history of smoking and daily alcohol use presents to ER with complaints of right arm numbness and perioral numbness initially started about 3 days back. Patient has been having worsening symptoms which made him to come to ER for evaluation. Patient is out of time frame for TPA. Patient denied any complaints of difficulty in speech, blurred vision or focal weakness. Denied any complaints of chest pain or shortness of breath. No complains of palpitations. No headache or dizziness or lightheadedness. No nausea vomiting or diarrhea. Denied any recent illnesses. Patient says that she does have some leg swelling otherwise denied any complaints. Blood pressures uncontrolled on admission with SBP greater than 220 mmHg. EKG showed normal sinus rhythm. Left atrial enlargement. Chest x-ray showed correlate for COPD CT head showed no acute process. 10/27/2018 Patient is currently sitting on the chair comfortably. No complains of chest pain or shortness of breath. Right hand numbness is almost resolved. Tolerating oral diet. Blood pressure is still elevated. Continue with Norvasc and will add hydrochlorothiazide/lisinopril. MRI of the brain and 2-D echocardiogram is pending. LDL is 141. Patient is ALLERGIC to atorvastatin. Continue with aspirin at this time. Neurology is on board. 10/28/2018 Patient is still having right arm numbness. MRI of the brain showed findings consistent with acute CVA and consider embolic phenomenon.. Patient is being continued on aspirin. 2-D echocardiogram was done. Cardiology was consulted for possible NAYELY. Neurology on board. Blood pressure is improving. Currently on Norvasc, hydrochlorothiazide/lisinopril. Titrate dose as needed. Otherwise patient is able to tolerate oral diet. No headache or dizziness or lightheadedness. Discussed with his at bedside in detail. Current medications reviewed. Objective - Vital Signs Vital signs: Vital Signs Temp 97.9 F 10/28/18 20:00 Pulse 95 10/28/18 20:00 Resp 18 10/28/18 20:00 BP 174/105 10/28/18 20:00 Pulse Ox 95 10/28/18 20:00 Intake & Output 10/28/18 10/28/18 10/29/18 06:59 18:59 06:59 Intake Total 720 720 240 Balance 720 720 240 Weight 108.5 kg Intake: Oral 720 720 240 Other: Voiding Method Toilet Toilet Toilet # Voids 1 1 - Exam PHYSICAL EXAMINATION: Patient is lying in the bed comfortably, no acute distress, awake alert and oriented.. HEENT: Normocephalic. Neck is supple. Pupils reactive. Nostrils clear. Oral cavity is moist. Ears reveal no drainage. Neck reveals no JVD, carotid bruits, or thyromegaly. CHEST EXAMINATION: Trachea is central. Symmetrical expansion. Lung ryan clear to auscultation and percussion. CARDIAC: Normal S1, S2 with no gallops. No murmurs ABDOMEN: Soft. Bowel sounds normal. No organomegaly. No abdominal bruits. Extremities: reveal no edema. No clubbing or cyanosis Neurologically awake, alert, oriented x3 with well-coordinated movements. No focal deficits noted Skin: No rash or skin lesions. Psychiatric: Coperative. Nonsuicidal Musculoskeletal: No joint swelling or deformity. Normal range of motion. - Labs CBC & Chem 7: 10/26/18 12:40 10/28/18 05:46 Labs: Abnormal Lab Results - Last 24 Hours (Table) 10/26/18 10/28/18 Range/Units 12:40 05:46 Glucose 154 H (74-99) mg/dL Hemoglobin A1c 6.1 H (4.0-6.0) % Assessment and Plan Assessment: Right arm numbness and perioral numbness due to acute CVA with embolic phenomenon. Hypertensive urgency on admission. Uncontrolled hypertension Hyperlipidemia with LDL 141 Noncompliance with medications Nicotine addiction Daily alcohol use DVT prophylaxis Plan: Patient will be continued on telemetry monitoring. Started on aspirin 325 mg daily. Patient is ALLERGIC to atorvastatin.. 2-D echocardiogram was done.. Neurology is following. Continue with current blood pressure medications. Started on multivitamins and thiamine. Monitor for any alcohol withdrawal s ymptoms. Follow up closely and further recommendations based on the clinical course. Time with Patient: Greater than 30
[2018-10-29] MEDS ORDERED: hydrALAZINE HCL 50 MG TAB PO PRN (04:53)
[2018-10-29 06:46] LABS: Basophils % (A) 1 %; Eosinophils # (A) 0.1 k/uL (0-0.7); Eosinophils % (A) 2 %; HCT 46.6 % (39.0-53.0); HGB 15.4 gm/dL (13.0-17.5); Lymphocytes # (A) 1.5 k/uL (1.0-4.8); Lymphocytes % (A) 29 %; MCH 30.8 pg (25.0-35.0); MCV 93.5 fL (80.0-100.0); Mean Platelet Volume 7.7; Monocytes # (A) 0.3 k/uL (0-1.0); Monocytes % (A) 6 %; Neutrophils # (A) 2.9 k/uL (1.3-7.7); Neutrophils % (A) 59 %; Platelet Count 215 k/uL (150-450); RBC 4.98 m/uL (4.30-5.90)
[2018-10-29 06:54] LABS: African American GFR (CKD) >90 (>60 ml/min/1.73 sqM); Anion Gap 5 mmol/L; Blood Urea Nitrogen 13 mg/dL (9-20); Calcium 9.5 mg/dL (8.4-10.2); Carbon Dioxide 26 mmol/L (22-30); Chloride 107 mmol/L (98-107); Glucose 141 mg/dL (74-99); Potassium 4.4 mmol/L (3.5-5.1); Sodium 138 mmol/L (137-145)
[2018-10-29] MEDS: DOCUSATE 100 MG CAP PO SCH ×3 (08:08→22:54)
[2018-10-29] MEDS: THIAMINE 100 MG TAB PO SCH (08:08)
[2018-10-29] MEDS: LISINOPRIL-HCTZ 10-12.5 MG 1 EACH TAB PO SCH (08:08)
[2018-10-29] MEDS: ASPIRIN 325 MG TAB PO SCH (08:08)
[2018-10-29] MEDS: MULTIVITAMINS, THERA 1 EACH TAB PO SCH (08:08)
[2018-10-29] MEDS: HEPARIN SODIUM,PORCINE 5,000 UNIT/ML 1 ML VIAL SQ SCH ×3 (08:08→22:54)
[2018-10-29] MEDS: amLODIPine 10 MG TAB PO SCH (08:08)
[2018-10-29] MEDS: FAMOTIDINE 20 MG TAB PO SCH ×2 (08:08→22:54)
[2018-10-29] MEDS: CLOPIDOGREL 75 MG TAB PO SCH (08:50)
--- NOTE | 2018-10-29 11:53 | P.CRDCN ---
History of Present Illness Consult date: 10/29/18 Chief complaint: Right face numbness and right arm numbness History of present illness: This is a pleasant 58-year-old gentleman with history of hypertension as well as dyslipidemia who stopped taking his medications about 3 years ago, prior history of smoking, and active history of alcohol use, where the patient drinks about 6 beers every day, presented to the emergency room complaining of right arm and right face numbness. The patient has been experiencing the symptoms for the last 3 days but yesterday his symptoms has gotten worse where the numbness lasted longer than what normally does as well as the right arm numbness did not go away and because of that the patient decided to come to the emergency room. He did not have no other symptoms of slurred speech, diplopia, dizziness, syncope, or weakness of the upper or lower extremities. When he presented to the emergency room the systolic blood pressure was about 200 mmHg systolic. The patient was admitted to the hospital for evaluation of stroke and he was started on blood pressure medications including Norvasc, hydralazine, and lisinopril/hydrochlorothiazide. The blood pressure today is improved about 30 mmHg. The patient denies any symptoms of chest pain or chest discomfort. The MRI was performed and showed possible embolic phenomena bilaterally and because of that we consulted to see the patient to perform transesophageal echocardiogram on him to rule out cardiac source of embolization. The patient denies any history of coronary artery disease or congestive heart failure or cardiac arrhythmia. EKG showed sinus rhythm with RBBB. The troponin is within normal limits with the chest x-ray did not show any acute abnormalities. The carotid duplex study did not show any hemodynamically significant stenosis. Past Medical History Past Medical History: No Reported History History of Any Multi-Drug Resistant Organisms: None Reported Past Surgical History: Hernia Repair, Orthopedic Surgery Additional Past Surgical History / Comment(s): (L) (R) rotator cuff surgery Past Psychological History: No Psychological Hx Reported Smoking Status: Former smoker Past Alcohol Use History: Daily Past Drug Use History: None Reported Medications and Allergies Home Medications Medication Instructions Recorded Confirmed Type Aspirin EC [Ecotrin Low Dose] 81 mg PO DAILY 10/26/18 10/26/18 History Multivitamins, Thera [Multivitamin 1 tab PO DAILY 10/26/18 10/26/18 History (formulary)] Corder-3 Fatty Acids/Fish Oil [Fish 1 cap PO DAILY 10/26/18 10/26/18 History Oil 1,000 mg Softgel] Allergies Allergy/AdvReac Type Severity Reaction Status Date / Time atorvastatin [From Lipitor] Allergy Itching Verified 10/26/18 12:37 diclofenac [From Cataflam] Allergy Itching Verified 10/26/18 12:37 Sulfa (Sulfonamide Allergy Unknown Verified 10/26/18 12:37 Antibiotics) Physical Exam Vitals: Vital Signs Temp Pulse Pulse Resp BP Pulse Ox 10/29/18 08:15 97.8 F 81 16 167/63 97 10/29/18 04:00 98.0 F 71 18 160/92 98 10/29/18 00:00 89 16 156/96 98 10/28/18 20:00 97.9 F 95 18 174/105 95 10/28/18 16:00 98.2 F 88 16 172/90 97 10/28/18 12:21 98.1 F 86 16 171/88 95 Intake and Output 10/28/18 10/29/18 10/29/18 22:59 06:59 14:59 Intake Total 480 0 Balance 480 0 Intake: Oral 480 0 Other: Voiding Method Toilet Toilet Toilet # Voids 1 1 Weight 111.2 kg - Constitutional General appearance: no acute distress - Respiratory Respiratory: bilateral: CTA - Cardiovascular Rhythm: regular Heart sounds: normal: S1, S2 Results 10/29/18 06:23 10/29/18 06:23 CBC 10/29/18 Range/Units 06:23 WBC 5.0 (3.8-10.6) k/uL RBC 4.98 (4.30-5.90) m/uL Hgb 15.4 (13.0-17.5) gm/dL Hct 46.6 (39.0-53.0) % Plt Count 215 (150-450) k/uL Comprehensive Metabolic Panel 10/29/18 Range/Units 06:23 Sodium 138 (137-145) mmol/L Potassium 4.4 (3.5-5.1) mmol/L Chloride 107 (98-107) mmol/L Carbon Dioxide 26 (22-30) mmol/L BUN 13 (9-20) mg/dL Creatinine 0.84 (0.66-1.25) mg/dL Glucose 141 H (74-99) mg/dL Calcium 9.5 (8.4-10.2) mg/dL Current Medications Generic Name Dose Route Start Last Admin Trade Name Freq PRN Reason Stop Dose Admin Amlodipine Besylate 10 mg 10/26/18 16:45 10/29/18 08:08 Norvasc PO 10 mg DAILY CHANDLER Administration Aspirin 81 mg 10/30/18 09:00 Aspirin PO DAILY CHANDLER Clopidogrel Bisulfate 75 mg 10/29/18 09:00 10/29/18 08:50 Plavix PO 75 mg DAILY CHANDLER Administration Docusate Sodium 100 mg 10/26/18 16:00 10/29/18 08:08 Colace PO 100 mg Q8HR CHANDLER Administration Famotidine 20 mg 10/26/18 21:00 10/29/18 08:08 Pepcid PO 20 mg BID CHANDLER Administration Lisinopril/HCTZ 1 each 10/28/18 09:00 10/29/18 08:08 Zestoretic 10-12.5 PO 1 each DAILY CHANDLER Administration Heparin Sodium (Porcine) 5,000 unit 10/27/18 00:00 10/29/18 08:08 Heparin SQ 5,000 unit Q8HR CHANDLER Administration Hydralazine HCl 50 mg 10/29/18 04:53 Apresoline PO QID PRN Hypertension Multivitamins 1 each 10/27/18 09:00 10/29/18 08:08 Theragran PO 1 each DAILY CHANDLER Administration Thiamine HCl 100 mg 10/27/18 09:00 10/29/18 08:08 Vitamin B-1 PO 100 mg DAILY CHANDLER Administration Intake and Output 10/28/18 10/29/18 10/29/18 22:59 06:59 14:59 Intake Total 480 0 Balance 480 0 Intake: Oral 480 0 Other: Voiding Method Toilet Toilet Toilet # Voids 1 1 Weight 111.2 kg 10/29/18 06:23 10/29/18 06:23 Assessment and Plan Assessment: Assessment #1 stroke likely related to embolic phenomena #2 uncontrolled hypertension #3 dyslipidemia #4 noncompliance with medications #6 alcohol abuse Plan #1 agree to keep the patient on the current blood pressure medications #2 the echocardiogram reviewed and revealed normal LV function with mild MR and mild TR #3 the patient is scheduled to undergo a NAYELY tomorrow Thank you for allowing us participate in his care and we will continue following up with the patient
[2018-10-29] MEDS: LISINOPRIL-HCTZ 20-12.5 MG 1 EACH TAB PO SCH (17:02)
--- NOTE | 2018-10-29 17:24 | PN ---
PROGRESS NOTE DATE OF SERVICE: 10/29/2018 I had the pleasure of re-evaluating the patient, who is currently sitting up in a bedside chair. He denies new complaints, has no headache and states that the numbness involving the right side of his lips has resolved and is only left with numbness in the fingertips of the right hand. He is tolerating medication without difficulty. According to nursing staff, he has had no additional arrhythmias. Transesophageal echocardiogram is scheduled for tomorrow. CURRENT MEDICATIONS: Norvasc, aspirin 81 mg daily, Plavix 75 mg daily, Colace, Pepcid, heparin subcu, hydralazine, Zestoretic, multivitamin and thiamine. PHYSICAL EXAM: The patient is sitting up in a bedside chair. He is alert and conversant. Vital signs: Blood pressure 167/63 with a pulse of 81, respiratory rate 16, temperature 97.8. The patient is alert, oriented to time, place, and person. There is no a facial or dysarthria. Cranial nerves 2-12 are intact. Motor examination, no pronator drift. Normal bulk and tone is noted in all major muscle groups. Strength is 5/5 throughout. Reflexes 1/4 for the upper extremities and patella, 2/4 for the ankles. Moncada's is absent. Coordination, drodon-nj-subf, mgng-tn-axtu movements are intact. Rapid alternating movements are symmetric. TESTING: White blood cell count 5.0, hemoglobin 15.4, and platelet count 215. Sodium 138, potassium 4.4, BUN 13, and creatinine 0.8. IMPRESSION: 1. Tiny, bilateral parietal (MCA distribution) infarcts, likely cardioembolic in nature versus secondary to uncontrolled hypertension. Risk factors for stroke include hypertension, hyperlipidemia, daily alcohol use, male sex and age. The patient was taking aspirin 81 mg daily at the time of this event. 2. Run of ventricular tachycardia on telemetry, defer to Cardiology. 3. Severe concentric left ventricular hypertrophy on echocardiogram, reflective of uncontrolled hypertension. 4. Noncompliance with physician followups. 5. LIPITOR ALLERGY, the patient states he has also tried several other statins. RECOMMENDATIONS: 1. Transesophageal echocardiogram is scheduled for in the morning, if this study is unrevealing, would consider prolonged cardiac monitoring on an outpatient basis versus a loop recorder placement. 2. Continue Plavix and aspirin. 3. Statin per primary service. 4. Risk factor modification. 5. Treatment of hypertension per primary service. 6. Moderate alcohol consumption. 7. Will follow with you. MMODL / IJN: [id number] / GONZALES
--- NOTE | 2018-10-29 23:55 | P.PN ---
Subjective Progress Note Date: 10/29/18 Principal diagnosis: Right arm numbness possible acute CVA Patient is a 58-year-old male with a known history of hypertension and is currently not taking any medications at home, previous history of smoking and daily alcohol use presents to ER with complaints of right arm numbness and perioral numbness initially started about 3 days back. Patient has been having worsening symptoms which made him to come to ER for evaluation. Patient is out of time frame for TPA. Patient denied any complaints of difficulty in speech, blurred vision or focal weakness. Denied any complaints of chest pain or shortness of breath. No complains of palpitations. No headache or dizziness or lightheadedness. No nausea vomiting or diarrhea. Denied any recent illnesses. Patient says that she does have some leg swelling otherwise denied any complaints. Blood pressures uncontrolled on admission with SBP greater than 220 mmHg. EKG showed normal sinus rhythm. Left atrial enlargement. Chest x-ray showed correlate for COPD CT head showed no acute process. 10/27/2018 Patient is currently sitting on the chair comfortably. No complains of chest pain or shortness of breath. Right hand numbness is almost resolved. Tolerating oral diet. Blood pressure is still elevated. Continue with Norvasc and will add hydrochlorothiazide/lisinopril. MRI of the brain and 2-D echocardiogram is pending. LDL is 141. Patient is ALLERGIC to atorvastatin. Continue with aspirin at this time. Neurology is on board. 10/28/2018 Patient is still having right arm numbness. MRI of the brain showed findings consistent with acute CVA and consider embolic phenomenon.. Patient is being continued on aspirin. 2-D echocardiogram was done. Cardiology was consulted for possible NAYELY. Neurology on board. Blood pressure is improving. Currently on Norvasc, hydrochlorothiazide/lisinopril. Titrate dose as needed. Otherwise patient is able to tolerate oral diet. No headache or dizziness or lightheadedness. Discussed with his at bedside in detail. 10/29/2018 Patient denied any complaints of chest pain or shortness of breath. Still having some numbness of the right hand. No swallowing difficulty. Scheduled for NAYELY tomorrow due to embolic phenomenon in the MRI of the brain. Cardiology and neurology is following No other acute overnight issues. No fever no chills. No nausea vomiting or abdominal pain or diarrhea. Blood pressure is better controlled. Current medications reviewed. Objective - Vital Signs Vital signs: Vital Signs Temp 98.0 F 10/29/18 19:46 Pulse 92 10/29/18 19:46 Resp 18 10/29/18 19:46 BP 138/87 10/29/18 19:46 Pulse Ox 95 10/29/18 19:46 Intake & Output 10/29/18 10/29/18 10/30/18 06:59 18:59 06:59 Intake Total 240 480 Balance 240 480 Weight 111.2 kg Intake: Oral 240 480 Other: Voiding Method Toilet Toilet Toilet # Voids 1 5 - Exam PHYSICAL EXAMINATION: Patient is lying in the bed comfortably, no acute distress, awake alert and oriented.. HEENT: Normocephalic. Neck is supple. Pupils reactive. Nostrils clear. Oral cavity is moist. Ears reveal no drainage. Neck reveals no JVD, carotid bruits, or thyromegaly. CHEST EXAMINATION: Trachea is central. Symmetrical expansion. Lung ryan clear to auscultation and percussion. CARDIAC: Normal S1, S2 with no gallops. No murmurs ABDOMEN: Soft. Bowel sounds normal. No organomegaly. No abdominal bruits. Extremities: reveal no edema. No clubbing or cyanosis Neurologically awake, alert, oriented x3 with well-coordinated movements. No focal deficits noted Skin: No rash or skin lesions. Psychiatric: Coperative. Nonsuicidal Musculoskeletal: No joint swelling or deformity. Normal range of motion. - Labs CBC & Chem 7: 10/29/18 06:23 10/29/18 06:23 Labs: Abnormal Lab Results - Last 24 Hours (Table) 10/29/18 Range/Units 06:23 Glucose 141 H (74-99) mg/dL Assessment and Plan Assessment: Right arm numbness and perioral numbness due to acute CVA with embolic phenomenon. Hypertensive urgency on admission. Uncontrolled hypertension Hyperlipidemia with LDL 141 Noncompliance with medications Nicotine addiction Daily alcohol use DVT prophylaxis Plan: Patient will be continued on telemetry monitoring. Started on aspirin 325 mg daily. Patient is ALLERGIC to atorvastatin.. 2-D echocardiogram showed normal ejection fraction. NAYELY tomorrow due to embolic phenomenon in the MRI of the pain. Cardiology and Neurology is following. Continue with current blood pressure medications. Started on multivitamins and thiamine. Monitor for any alcohol withdrawal symptoms. Follow up closely and further recommendations based on the clinical course. Time with Patient: Greater than 30
[2018-10-30] MEDS ORDERED: fentaNYL (PF) 50 MCG/ML 2 ML AMP ONE (07:44)
[2018-10-30 07:49] VITALS: PULSE 77; TEMP 97.8
[2018-10-30] MEDS: BENZOCAINE SPRAY 1 CAN MUCOUS MEM ONE ×2 (07:58→08:08)
[2018-10-30] MEDS ORDERED: SODIUM CHLORIDE 0.9% 500 ML 500 ML IV ONE (08:03)
[2018-10-30] MEDS ORDERED: MIDAZOLAM (PF) 2 MG/2 ML VIAL IVP ONE (08:07)
[2018-10-30] MEDS: fentaNYL (PF) 50 MCG/ML 2 ML AMP IVP ONE ×3 (08:07→08:24)
[2018-10-30] MEDS: MIDAZOLAM (PF) 2 MG/2 ML VIAL IVP ONE ×2 (08:11→08:12)
[2018-10-30] MEDS ORDERED: PROPOFOL 10 MG/ML 20 ML VIAL IV ONE (08:31)
[2018-10-30] MEDS ORDERED: ASPIRIN 81 MG PO SCH (09:00)
--- NOTE | 2018-10-30 09:13 | ECHOT ---
TRANSESOPHAGEAL ECHOCARDIOGRAM DATE OF SERVICE: October 30, 2018 PERFORMING PHYSICIAN: Reynaldo Alfonso MD, dynamo repairer. PROCEDURE PERFORMED: Transesophageal echocardiogram. INDICATION: This is 58-year-old gentleman who presented to the hospital with symptoms of right face and right arm numbness concerning for stroke. He underwent an MRI which showed possible embolic phenomena with bilateral embolization. Because of that, a transesophageal echocardiogram was advised. COMPLICATION: None. LEVEL OF SEDATION: Initially we tried moderate sedation, but it did not work and we ended doing general anesthesia. PROCEDURE DESCRIPTION: After obtaining an informed consent, explaining the procedure, benefits, risks, complications and alternatives, the patient was brought to the transesophageal echocardiogram suite. A pulse oximetry and heart rate monitors were attached to the patient prior to the procedure. The patient's throat was sprayed using lidocaine locally. Following that, the patient was turned into left lateral position. A bite guard was placed and the patient was then sedated with the above doses of Versed and fentanyl in divided doses. Following that, the transesophageal echocardiogram probe was advanced through the bite guard into the mid esophagus where 2-D echocardiogram images as well as color Doppler images of various cardiac structures were obtained. We evaluated the interatrial septum using 2-D echocardiogram, color Doppler, and contrast study. The procedure was completed. There were no complications. FINDINGS: Left ventricular dimension and systolic function appeared to be within normal limits with EF of 50% to 55%. Right ventricle appeared to be of normal size and function. The left atrium and right atrium appeared to be within normal limits for dimension. The left atrial appendage appeared to be free from any thrombus. The interatrial septum appeared to be intact. The aortic valve is trileaflet valve without stenosis or regurgitation. The mitral valve seems to be mildly thickened with mild MR. The tricuspid valve and pulmonic valve appear to be within normal limits. No evidence of pericardial effusion seen. CONCLUSION: 1. No evidence of cardiac source of embolization. 2. Intact interatrial septum without any evidence of patent foramen ovale or atrial septal defect or any shunt. 3. Normal left atrial appendage without any evidence of thrombus. 4. Normal left ventricular dimension and systolic function. 5. Trileaflet aortic valve with aortic sclerosis and without any stenosis or insufficiency. 6. Thickened mitral valve leaflets with mild physiologic mitral regurgitation. 7. Normal tricuspid valve and pulmonic valve. 8. Normal aortic root dimension. 9. No evidence of pericardial effusion. MMODL / IJN: [id number] /
[2018-10-30] MEDS: HEPARIN SODIUM,PORCINE 5,000 UNIT/ML 1 ML VIAL SQ SCH (10:07)
[2018-10-30] MEDS: MULTIVITAMINS, THERA 1 EACH TAB PO SCH (10:07)
[2018-10-30] MEDS: THIAMINE 100 MG TAB PO SCH (10:07)
[2018-10-30] MEDS: amLODIPine 10 MG TAB PO SCH (10:07)
[2018-10-30] MEDS: LISINOPRIL-HCTZ 20-12.5 MG 1 EACH TAB PO SCH (10:07)
[2018-10-30] MEDS: FAMOTIDINE 20 MG TAB PO SCH (10:07)
[2018-10-30] MEDS: CLOPIDOGREL 75 MG TAB PO SCH (10:07)
[2018-10-30] MEDS: DOCUSATE 100 MG CAP PO SCH (10:07)
[2018-10-30 12:03] VITALS: BP 174/97; RESP 16
[2018-10-30] MEDS ORDERED: BENZOCAINE/MENTHOL LOZENG 1 EACH LOZENGE MUCOUS MEM PRN (13:37)
== END 2018-10-30 17:18 | disposition home or self-care (01) | DRG 65 ==
LOC: EC 12:00 → 3SCARD 13:45
PROVIDERS: ADMIT Internal Medicine; ATTEND Internal Medicine
PROC: B246ZZ4 Ultrasonography of Right and Left Heart, Transesophageal (ICD-10-PCS; principal; 2018-10-30 08:00)
DX: I63.10 Cerebral infarction due to embolism of unspecified precerebral artery (principal); I47.2 Ventricular tachycardia; R20.2 Paresthesia of skin; R29.702 NIHSS score 2; E66.9 Obesity, unspecified; Z68.33 Body mass index [BMI] 33.0-33.9, adult; E78.5 Hyperlipidemia, unspecified; F10.20 Alcohol dependence, uncomplicated; F17.210 Nicotine dependence, cigarettes, uncomplicated; I10 Essential (primary) hypertension; I16.0 Hypertensive urgency; I45.10 Unspecified right bundle-branch block; I51.7 Cardiomegaly; I73.9 Peripheral vascular disease, unspecified; J44.9 Chronic obstructive pulmonary disease, unspecified; Z79.82 Long term (current) use of aspirin; Z79.899 Other long term (current) drug therapy; Z86.73 Personal history of transient ischemic attack (TIA), and cerebral infarction without residual deficits; Z88.8 Allergy status to other drugs, medicaments and biological substances; Z91.19 Patient's noncompliance with other medical treatment and regimen; Z88.2 Allergy status to sulfonamides; G56.00 Carpal tunnel syndrome, unspecified upper limb; T46.5X6A Underdosing of other antihypertensive drugs, initial encounter; Z91.128 Patient's intentional underdosing of medication regimen for other reason; I34.0 Nonrheumatic mitral (valve) insufficiency
CPT/HCPCS: 36415; 70450; 70544; 70551; 71046; 80048; 80053; 80061; 83036; 83735; 84132; 84484; 85025; 85610; 85730; 93005; 93306; 93312; 93320; 93325; 93880; 99285

== ENCOUNTER → 2019-02-07 | Outpatient (CLI) | payer BC ==
--- NOTE | 2019-02-07 11:01 | CTL ---
EXAMINATION TYPE: CT Low Dose Lung DATE OF EXAM ORDERED: 02/07/2019 HISTORY: Personal history tobacco use. Lung cancer screening CT DLP: 134.[address] CTDI: 3.5 mGy Automated exposure control for dose reduction was used. SCREENING VISIT: 1 COMPARISON: None TECHNIQUE: Low dose computed tomography scan was performed through the chest at 1 mm thick sections a nd reconstructed images in the coronal plane at [address] DIAGNOSTIC QUALITY: Satisfactory FINDINGS: LUNG NODULES: None. Left lung a nodule apex. There is Nodule Size in Millimeters by mm was visualized with Nodule Type: Solid that is on image # CT Image slide number 41. Subpleural less than 5 mm nodularity is present bilaterally LUNGS: COPD: Severity: None Fibrosis: Severity: None Lymph nodes: There is some shotty nodes within the mediastinum, aorticopulmonary window node shows so me borderline enlargement. Other findings: Intimal linear stranding at the lung bases RIGHT PLEURAL SPACE: Effusion: None Calcification: None Thickening: None Pneumothorax: None LEFT PLEURAL SPACE: Effusion: None Calcification: None Thickening: None Pneumothorax: None HEART: Heart Size: Normal Coronary calcification: Moderate Pericardial effusion: None OTHER FINDINGS: Upper abdomen: Unremarkable giving lack of intravenous contrast. Bony thorax: Thoracic spondylosis is present. Supraclavicular region: Unremarkable Other: Thoracic aorta shows a bulbus appearance measuring 2.8 cm in transverse dimension, the aortic root may be enlarged at 4.1 cm, proximal descending aorta is 3.8 cm. IMPRESSION: Probably benign lung findings. Thoracic aortic aneurysm, coronary artery disease. Borderl ine mediastinal adenopathy. FOLLOW UP CT CHEST RECOMMENDATION: 6-12 months for the pulmonary nodule. Consider vascular surgery co nsult for aortic aneurysm. There is borderline mediastinal adenopathy which is indeterminate. CT LUNG RAD: 3
== END | disposition home or self-care (01) ==
LOC: RADCTMAIN 08:31
PROVIDERS: ATTEND Family Medicine
DX: Z12.2 Encounter for screening for malignant neoplasm of respiratory organs (principal); I71.2 Thoracic aortic aneurysm, without rupture; I25.10 Atherosclerotic heart disease of native coronary artery without angina pectoris; R59.0 Localized enlarged lymph nodes; Z87.891 Personal history of nicotine dependence

== ENCOUNTER → 2021-07-20 | Outpatient (CLI) | payer BC ==
--- NOTE | 2021-07-20 21:30 | CTL ---
EXAMINATION TYPE: CT Low Dose Lung DATE OF EXAM ORDERED: 07/20/2021 HISTORY: Tobacco use. Lung cancer screening CT DLP: 101.[address] CTDI: 2.6 mGy Automated exposure control for dose reduction was used. SCREENING VISIT: Follow-up COMPARISON: CT dated 02/07/2019 TECHNIQUE: Low dose computed tomography scan was performed through the chest at 1 mm thick sections a nd reconstructed images in multiple planes at 1 mm and [address] DIAGNOSTIC QUALITY: Satisfactory FINDINGS: LUNG NODULES: Left lung apex solid [address] image 41. This nodule is stable. Left lower lung zone solid [address] image 199. This nodule is stable. The other previously seen scattered bilateral apical pleural-based nodules are stable. LUNGS: COPD: Severity: Mild Fibrosis: Severity: None Lymph nodes: Prominent partially calcified mediastinal lymph nodes, stable without interval progressi on Other findings: Diffuse bronchial thickening. Minimal linear atelectasis is seen in the lung bases bi laterally. Saber-sheath trachea. RIGHT PLEURAL SPACE: Effusion: None Calcification: None Thickening: None Pneumothorax: None LEFT PLEURAL SPACE: Effusion: None Calcification: None Thickening: None Pneumothorax: None HEART: Heart Size: Normal Coronary Calcification: Moderate to severe Pericardial Effusion: None OTHER FINDINGS: Upper abdomen: Atrophic pancreas. Bony thorax: Degenerative changes of the sternoclavicular joints and thoracic spine. Supraclavicular region: None Other: Scattered arterial atherosclerotic calcifications. IMPRESSION: Stable scattered pulmonary nodules without interval progression as described above. Diffu se bronchial thickening which may suggest chronic bronchitis. Other incidental findings as described above. CT LUNG RAD AND CT CHEST RECOMMENDATION: Lung-Rad 2 Benign Appearance or Behavior: Continue annual sc reening with LDCT in 12 months. S Modifier (other clinically significant findings): None
== END | disposition home or self-care (01) ==
LOC: RADCTMAIN 16:27
PROVIDERS: ATTEND Family Medicine
DX: Z12.2 Encounter for screening for malignant neoplasm of respiratory organs (principal); R91.8 Other nonspecific abnormal finding of lung field; J98.09 Other diseases of bronchus, not elsewhere classified; Z87.891 Personal history of nicotine dependence
CPT/HCPCS: 71271

== ENCOUNTER → 2022-09-13 | Outpatient (CLI) | payer BC ==
--- NOTE | 2022-09-13 12:56 | CTL ---
EXAMINATION TYPE: CT Low Dose Lung DATE OF EXAM ORDERED: 09/13/2022 HISTORY: Long-term tobacco use. Lung cancer screening CT DLP: 158.[address] CTDI: 4 mGy Automated exposure control for dose reduction was used. SCREENING VISIT: Second after baseline COMPARISON: Prior studies 201906/14/2018 TECHNIQUE: Low dose computed tomography scan was performed through the chest at 1 mm thick sections a nd reconstructed images in multiple planes at 1 mm and [address] DIAGNOSTIC QUALITY: Satisfactory FINDINGS: LUNG NODULES: Present, detailed below: Small bilateral pulmonary nodules redemonstrated. For reference is 4 mm left upper lobe nodule axial image 53 which is unchanged from prior studies.. Reference is a stable 4 mm anterior left mid to lowe r lung nodule axial image 210 stable from last 2 studies. No new or enlarging greater than 5 mm pulmo nary nodules. LUNGS: COPD: Severity: Mild Fibrosis: Severity: Mild by basilar linear scarring and/or atelectasis Lymph nodes: Few prominent but calcified AP window and subcarinal lymph nodes redemonstrated. Some pr ominent noncalcified paratracheal and pericarinal along with AP window lymph nodes have similar appea danita to prior study. Other findings: Focal ectasia of the arch just after three-vessel takeoff measuring up to 3.5 cm axia l image 25 has similar appearance to prior study. RIGHT PLEURAL SPACE: Effusion: None Calcification: None Thickening: None Pneumothorax: None LEFT PLEURAL SPACE: Effusion: None Calcification: None Thickening: None Pneumothorax: None HEART: Heart Size: Normal Coronary Calcification: Moderate to severe redemonstrated Pericardial Effusion: None Prominent calcification at level of the mitral valve redemonstrated OTHER FINDINGS: Upper abdomen: Liver is diffusely low dense consistent with fatty infiltration Bony thorax: Bridging osteophytes in the thoracic spine redemonstrated Supraclavicular region: None Other: None IMPRESSION: Stable small tiny bilateral nodules. No new or enlarging greater than [address]UNG [address] CHEST RECOMMENDATION: Lung-Rad 2 Benign Appearance or Behavior: Continue annual sc reening with LDCT in 12 months. S Modifier (other clinically significant findings): None
== END | disposition home or self-care (01) ==
LOC: RADCTMAIN 11:57
PROVIDERS: ATTEND Family Medicine
DX: Z12.2 Encounter for screening for malignant neoplasm of respiratory organs (principal); F17.210 Nicotine dependence, cigarettes, uncomplicated; R91.1 Solitary pulmonary nodule
CPT/HCPCS: 71271